=== PATIENT | female | born 1985 | race Caucasian/White ===

== ENCOUNTER → 2022-03-19 08:27 | Outpatient (CLI) | payer OTHER, SELFPAY ==
[2022-03-19 09:25] LABS: COVID19 -Nasal RAPID Negative (Negative)
== END ==
PROVIDERS: PCP Student in an Organized Health Care Education/Training Program; Referring Provider Internal Medicine; Visit Provider Internal Medicine
DX: Z20.822 Contact with and (suspected) exposure to COVID-19 (principal)
CPT/HCPCS: 87635; C9803